=== PATIENT | female | born 1950 | race Caucasian/White ===

== ENCOUNTER 2023-07-31 15:29 | Outpatient (AMB) | payer MEDICARE, MEDICAID, SELFPAY ==
[2023-07-31 15:31] VITALS: BMI 40.6
--- NOTE | 2023-07-31 15:31 | A.OFFVIS_ITS ---
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 Pt states she is having swelling in her legs and ankles. She also states that she is having discoloration in her right leg. She states she elevates her leg but states the swelling doesn't go down. She states she gets some numbness in her feet as well. 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 Complaints include pain over varicosities, swelling of lower extremities, cramping, fatigue, and heaviness of the lower extremities. It has been affecting there daily activities including walking. She does require the use of a walker It is noted more so in right leg. Of note she had a in 1974 through a longitudinal midline incision. She does vape and stop cigarette smoking in 2010 and is a nondiabetic. Patient denies any previous venous surgery or injections. Patient notes 2 prior episodes of DVT left in 1993 and more recently the right leg. Of note she has been worked up and is a heterozygote for factor 5 Leiden deficiency. Patient denies any history of phlebitis. Trial of compression includes - attempted [id number] They now present for vascular evaluation regarding their varicose veins. [facility] Social History (Updated 07/31/23 @ 15:35 by Flakita Hidalgo CMA) Household Members: None Housing: House Do you presently have visiting nurse or other home services: Yes Alcohol intake: never Patient Tobacco Use Status: Never used Tobacco e-Cigarette/Vaping Use: Currently Using Use of substances other than those prescribed or required for medical reasons: No Review of Systems Const Reports as per HPI ENT Reports no additional complaints Card Denies chest pain, Denies chest pain at rest and Denies chest pain with activity Resp Denies chest congestion and Denies cough GI Reports no additional complaints Musc Details: pain over varicosities, aching of lower extremities, swelling, cramping, heaviness and tiredness, itching Denies abnormal gait Skin/Breast Reports pruritus and Denies wounds Neuro Reports no additional complaints and Denies abnormal gait Psych Denies no additional complaints Physical Exam Vital Signs: BMI result Body Mass Index 40.6 Const General: cooperative, healthy appearing and comfortable Orientation/consciousness: oriented to person, oriented to place and oriented to time Neck Carotids: no bruits Chest Chest palpation & inspection: normal inspection of the chest and normal palpation of entire chest wall Resp Effort & Inspection: normal respiratory effort and able to speak in complete sentences Cardio Rate: regular rate Heart sounds: S1 normal heart sound present and S2 normal heart sound present Peripheral pulses: Peripheral pulses 2+ throughout GI Inspection: Yes normal to inspection Skin Other: +2 edema, large rope-like varicosities greater than 4 mm CEAP Classification C4 - skin color changes Ep - Etiology Primary As - superficial veins P - reflux General skin exam: dry skin Neuro General: oriented to person, oriented to place and oriented to time Extrem Right lower extremity: full ROM, normal capillary refill and edema Left lower extremity: full ROM, normal capillary refill and edema Psych Mental Status: mental status grossly normal Assessment & Plan Assessment & Plan (1) Varicose veins of right lower extremity with inflammation: Code(s): I83.11 - Varicose veins of right lower extremity with inflammation Plan: In short, the patient has evidence of venous insufficiency. I have discussed the pathophysiology with the patient. In addition I have provided informational material regarding venous disease to the patient. We have discussed conservative measures including compression, elevation, and exercise. I have also provided a handout regarding appropriate use of compression stockings and where to purchase good compression stockings as well. I have taken the liberty of ordering venous insufficiency testing with the patient. They will follow up with me after testing. The patient had an opportunity to ask questions regarding the treatment plan. All questions were answered. Imaging studies, laboratory studies and physical exam results were discussed and reviewed in detail. No major barriers to understanding were identified. The patient expressed understanding and agreement with the above treatment plan. The patient is aware they should contact our office by phone for worsening of the current condition or the appearance of new symptoms. Thank you for allowing me to participate in the vascular care of this patient. If you have any questions or concerns regarding the treatment for the above condition please do not hesitate to contact me. The office telephone contact is [phone]. This note is constructed using voice recognition software. While every effort has been made to ensure accuracy, laminating machine tender errors may have been included. Thank you for allowing me to participate in the care of your patient. Yours sincerely, Obie Lake MD, FACS, R.P.V.I. (2) Lymphedema: Code(s): I89.0 - Lymphedema, not elsewhere classified Plan: In addition there is concern of lymphedema of this patient. She does have clinical stigmata of lymphedema with dorsal humping of the feet along with ankle swelling. In addition she has significant swelling through bilateral lower extremities along with her lower abdomen. This may be related to her surgery back in 1974. We will assess her venous status and then work her up for lymphedema. Orders: Orders US venous duplex LE BI 1 Week I83.11 - Varicose veins of right lower extremity with inflammation Coding Level of Care Code New Pt Level 4 (76970) Diagnoses Varicose veins of right lower extremity with inflammation I83.11 Lymphedema I89.0
== END 2023-07-31 16:17 | disposition home or self-care (01) ==
PROVIDERS: Visit Provider Surgery Vascular Surgery
DX: I83.11 Varicose veins of right lower extremity with inflammation (principal); I89.0 Lymphedema, not elsewhere classified
CPT/HCPCS: 99203

== ENCOUNTER → 2023-07-31 15:29 | Outpatient (BNVA) | payer MEDICARE, MEDICAID, SELFPAY | PROVIDERS: Visit Provider Surgery Vascular Surgery | DX: I83.11 Varicose veins of right lower extremity with inflammation (principal); I89.0 Lymphedema, not elsewhere classified | CPT/HCPCS: 99202 ==

== ENCOUNTER 2023-08-09 12:54 | Outpatient (REF) | payer MEDICARE, MEDICAID, SELFPAY ==
--- NOTE | ~2023-08-09 | US_ITS ---
EXAMINATION: US LOWER EXTREMITY VENOUS (REFLUX EXAM), BILATERAL CLINICAL INDICATION: Chronic venous insufficiency with varicose veins with inflammation COMPARISON: None. TECHNIQUE: Color flow triplex imaging and compression Doppler was performed to evaluate both the deep and the superficial systems bilaterally. To evaluate the superficial system, the examination was performed in the upright position. Color-flow Doppler ultrasound and compression ultrasound were utilized. In addition, maneuvers were utilized to demonstrate reflux. FINDINGS: 1. DEEP VENOUS ULTRASOUND OF THE RIGHT LOWER EXTREMITY: Common Femoral Vein: Compressible, normal respiratory variation and augmented flow. Femoral Vein: Compressible, normal color flow and augmentation. Popliteal Vein: Compressible, normal augmentation. Deep Reflux: Deep venous reflux seen in the popliteal vein measuring 1184 ms There is no evidence of a Chang's cyst. 2. SUPERFICIAL ULTRASOUND WITH DOPPLER OF RIGHT LOWER EXTREMITY: GREAT SAPHENOUS VEIN: Saphenofemoral Junction: 0.6 cm; Reflux: 0 ms Proximal Thigh: 0.6 cm; Reflux: 0 ms Mid Thigh: 0.6 cm; Reflux: 760 ms Above Knee: 0.5 cm; Reflux: 0 ms At Knee: 0.6 cm; Reflux: 0 ms Below Knee: 0.6 cm; Reflux: 0 ms Mid Calf: 0.6 cm; Reflux: 892 ms Ankle: 0.4 cm; Reflux: 0 ms DUPLICATED MEDIAL GREAT SAPHENOUS VEIN: Diameter: 0.4 cm Reflux: None DUPLICATED LATERAL GREAT SAPHENOUS VEIN: Diameter: None imaged Reflux: NA SMALL SAPHENOUS VEIN: Saphenopopliteal Junction: 0.2 cm; Reflux: 0 ms Mid: 0.4 cm; Reflux: 0 ms Distal: 0.5 cm; Reflux: 0 ms VEIN OF GIACOMINI: Size: NA Reflux: NA PERFORATORS: Location: None imaged Size: NA Reflux: NA VARICOSITIES: Location: Posterior calf off the small saphenous vein, medial thigh off the medial accessory great saphenous vein, proximal and mid thigh, knee, proximal and mid calf off the great saphenous Size: 0.3 to 0.5 cm Reflux: Ranging from 616 ms to 1428 ms 3. DEEP VENOUS ULTRASOUND OF THE LEFT LOWER EXTREMITY: Common Femoral Vein: Compressible, normal respiratory variation and augmented flow. Femoral Vein: Compressible, normal color flow and augmentation. Popliteal Vein: Compressible, normal augmentation. Deep Reflux: There is no evidence of reflux in the deep system in either the common femoral vein, superficial femoral or the popliteal vein. There is no evidence of a Chang's cyst. 4. SUPERFICIAL ULTRASOUND WITH DOPPLER OF LEFT LOWER EXTREMITY: GREAT SAPHENOUS VEIN: Saphenofemoral Junction: 0.7 cm; Reflux: 0 ms Proximal Thigh: 0.6 cm; Reflux: 0 ms Mid Thigh: 0.7 cm; Reflux: 0 ms Above Knee: 0.2 cm; Reflux: 0 ms At Knee: Not visualized Below Knee: Not visualized Mid Calf: Not visualized Ankle: 0.4 cm; Reflux: 0 ms DUPLICATED MEDIAL GREAT SAPHENOUS VEIN: Diameter: None imaged Reflux: NA DUPLICATED LATERAL GREAT SAPHENOUS VEIN: Diameter: 0.4 cm Reflux: None SMALL SAPHENOUS VEIN: Saphenopopliteal Junction: 0.5 cm; Reflux: 1112 ms Mid: 0.5 cm; Reflux: 804 ms Distal: 0.6 cm; Reflux: 1692 ms VEIN OF GIACOMINI: Size: NA Reflux: NA PERFORATORS: Location: None imaged Size: NA Reflux: NA VARICOSITIES: Location: Posterior mid calf off the small saphenous vein, medial proximal and mid, thigh off the great saphenous vein, mid calf off the great saphenous Size: 0.4 to 0.6 cm Reflux: 1360 ms to 1560 ms US/US venous duplex LE BI IMPRESSION: Right: Segmental areas of reflux within the great saphenous vein in the mid to thigh and mid calf. There is deep venous reflux in the right popliteal vein. Multiple branching varicosities seen throughout the right lower extremity as described below. Left: Severe reflux throughout the left small saphenous vein. Multiple branching varicosities throughout the left lower extremity as described above
== END 2023-08-09 12:55 | disposition home or self-care (01) ==
LOC: HO.US 12:54
PROVIDERS: PCP Internal Medicine; Visit Provider Surgery Vascular Surgery
DX: I83.11 Varicose veins of right lower extremity with inflammation (principal)
CPT/HCPCS: 93970

== ENCOUNTER 2023-12-27 13:31 | Outpatient (AMB) | payer MEDICARE, MEDICAID, SELFPAY ==
[2023-12-27 13:37] VITALS: BMI 40.6
--- NOTE | 2023-12-27 13:37 | MHC.OFFVIS ---
Vital Signs 12/27/23 13:37 Height 5 ft 2 in Weight 222 lb BMI 40.6 Intake Visit Reasons: Follow up [facility] 08/09/2023 Intake Note: follow up 08/09/23, pt has bilateral LE swelling, Right LE worse than Left LE. Right LE has discoloration and Left LE has consistent pain. When elevates the discoloration disappears but swelling is always swelling Accompanied by: Self / Same As Patient Allergies acetaminophen [From Percocet] Allergy (Intermediate, Verified 12/27/23 13:41) Hives bupropion [From Wellbutrin] Allergy (Intermediate, Verified 12/27/23 13:41) Anxiety morphine Allergy (Intermediate, Verified 12/27/23 13:41) Hives oxycodone [From Percocet] Allergy (Intermediate, Verified 12/27/23 13:41) Hives tramadol [From Ultram] Allergy (Intermediate, Verified 12/27/23 13:41) Anxiety HPI HPI Follow up [facility] 08/09/2023: Details: Very pleasant 73-year-old female presents for follow-up regarding swollen lower extremities. She reports that is the left more so than right she is having left posterior calf pain. Has been a source of pain and discomfort for her. She is actually having difficulty ambulating a requires the use of walker. She now presents for routine follow-up with venous insufficiency testing. Of note she had tried use compression stockings which were extremely difficult for her. [facility] Social History (Updated 07/31/23 @ 15:35 by Flakita Hidalgo [facility] Household Members: None Housing: House Do you presently have visiting nurse or other home services: Yes Alcohol intake: never Patient Tobacco Use Status: Never used Tobacco e-Cigarette/Vaping Use: Currently Using Review of Systems Const Reports as per HPI ENT Reports no additional complaints Card Denies chest pain, Denies chest pain at rest and Denies chest pain with activity Resp Denies chest congestion and Denies cough GI Reports no additional complaints Musc Details: pain over varicosities, aching of lower extremities, swelling, cramping, heaviness and tiredness, itching Denies abnormal gait Skin/Breast Reports pruritus and Denies wounds Neuro Reports no additional complaints and Denies abnormal gait Psych Denies no additional complaints Physical Exam Vital Signs: BMI result Body Mass Index 40.6 Const General: cooperative, healthy appearing and comfortable Orientation/consciousness: oriented to person, oriented to place and oriented to time Neck Carotids: no bruits Chest Chest palpation & inspection: normal inspection of the chest and normal palpation of entire chest wall Resp Effort & Inspection: normal respiratory effort and able to speak in complete sentences Cardio Rate: regular rate Heart sounds: S1 normal heart sound present and S2 normal heart sound present Peripheral pulses: Peripheral pulses 2+ throughout GI Inspection: Yes normal to inspection Skin Other: +2 edema, large rope-like varicosities greater than 4 mm CEAP Classification C4 - skin color changes Ep - Etiology Primary As - superficial veins P - reflux General skin exam: dry skin Neuro General: oriented to person, oriented to place and oriented to time Extrem Right lower extremity: full ROM, normal capillary refill and edema Left lower extremity: full ROM, normal capillary refill and edema Psych Mental Status: mental status grossly normal Results Reviewed Results Reviewed: Brief summary of venous insufficiency testing is as follows: right great saphenous vein: negative right small saphenous vein: negative right accessory vein: none present left great saphenous vein: negative left small saphenous vein: Positive left accessory vein: none present Please note there is no evidence of any venous aneurysms or significant tortuosity Assessment & Plan Assessment & Plan (1) Varicose veins of left lower extremity with inflammation: Code(s): I83.12 - Varicose veins of left lower extremity with inflammation Category: Medical Plan: This patient has varicose veins with inflammation. They continue to be a source of discomfort for the patient. The patient has tried conservative treatment with compression, leg elevation and exercise program for over 3 months time. They have been compliant with all treatment. This has provided minimal relief for the patient. I do not anticipate this course of treatment will alter the underlying etiology. The patient has been scheduled for lower extremity venous treatment inclusive of --- left small saphenous vein radiofrequency ablation. Risks, benefits, and complications of this procedure has been discussed in detail with the patient including but not limited to bleeding, infection, and the development of a DVT. The patient has demonstrated a clear understanding and has consented. We will schedule the patient as soon as possible. Thank you for allowing us to participate in this patient's care. If there are any questions or concerns please do not hesitate to contact us. Coding Level of Care Code Est Pt Level 4 (07619) Diagnoses Varicose veins of left lower extremity with inflammation I83.12
== END 2023-12-27 14:03 | disposition home or self-care (01) ==
PROVIDERS: PCP Internal Medicine; Visit Provider Surgery Vascular Surgery
DX: I83.12 Varicose veins of left lower extremity with inflammation (principal)
CPT/HCPCS: 99214

== ENCOUNTER → 2023-12-27 13:31 | Outpatient (BNVA) | payer MEDICARE, MEDICAID, SELFPAY | PROVIDERS: PCP Internal Medicine; Visit Provider Surgery Vascular Surgery | DX: I83.12 Varicose veins of left lower extremity with inflammation (principal); I83.812 Varicose veins of left lower extremity with pain; M79.89 Other specified soft tissue disorders | CPT/HCPCS: 99212 ==

== ENCOUNTER 2024-02-01 07:21 | Outpatient (AMB) | payer MEDICARE, MEDICAID, SELFPAY ==
--- NOTE | 2024-02-01 07:42 | MHC.OFFVIS ---
Intake Visit Reasons: Left SSV RFA Accompanied by: Self / Same As Patient Allergies acetaminophen [From Percocet] Allergy (Intermediate, Verified 02/01/24 07:42) Hives bupropion [From Wellbutrin] Allergy (Intermediate, Verified 02/01/24 07:42) Anxiety morphine Allergy (Intermediate, Verified 02/01/24 07:42) Hives oxycodone [From Percocet] Allergy (Intermediate, Verified 02/01/24 07:42) Hives tramadol [From Ultram] Allergy (Intermediate, Verified 02/01/24 07:42) Anxiety PFSH Social History Household Members: None Housing: House Do you presently have visiting nurse or other home services: Yes Alcohol intake: never Patient Tobacco Use Status: Never used Tobacco e-Cigarette/Vaping Use: Currently Using Office Procedures Vascular Office Procedure Details Details: Diagnosis: Varicose veins with inflammation of left leg Procedure: Endovenous radiofrequency ablation of the left small saphenous vein(s) of the lower extremity with Venclose Anesthesia: Local infiltration 5 cc, Tumescent 200 cc. Estimated Blood Loss: Minimal The patient was transferred to the procedure suite and the insufficient small saphenous vein was mapped by ultrasound and diagrammed on the overlying skin. The depth and diameter of the vein(s) to be treated was documented. The varicose tributary veins and suitable access sites were identified and mapped as well. The patient was then positioned prone on the procedure table. The affected limb was prepped and draped in the usual sterile fashion. The RF catheter was placed on the sterile field, flushed and wiped down, prepared, and connected by a sterile cable. The patient was placed in a prone position and local anesthesia was instilled in the skin overlying the access site. A skin incision was made overlying the identified and mapped small saphenous vein entry site. The vein was accessed using ultrasound guidance and the Seldinger technique, a guide wire was introduced through the needle, which was then exchanged over the guide wire for a 6F sheath, which was secured in place. The guide wire was removed and the sheath was flushed. The RF catheter was placed into the vein through the sheath and preferentially, imaging was used to place the catheter tip just inferior to the saphenopopliteal junction. Additionally, it was confirmed by ultrasound guidance that the catheter tip was also placed a minimum of 1.5cm distal to the saphenopopliteal junction. After the RF catheter position was verified by ultrasound, tumescent anesthesia was infiltrated, under ultrasound guidance, precisely into the perivenous compartment along the entire length of vein from the entry site to the saphenofemoral junction until a halo of fluid was noted around the vein. The patient was appropriately position. After RF catheter position was again confirmed with ultrasound imaging, and under direct external compression along the length of the heating element, RF energy was applied. The vein was segmentally ablated by heating a 10 cm segment and then indexing the catheter forward by 9.5 cm until the treatment length is completed. Device temperature was maintained at 120 plus or minus 5 degrees C with an initial power level of 4W/cm dropping to below 2W/cm for each treatment. Total vein length treated 12.5 cm Total cycles of RF 3 cycles. Repeat ultrasound of the saphenous vein was performed, confirming successful treatment. The catheter and sheath were withdrawn and hemostasis established with direct pressure. After assuring hemostasis, the skin incision over the saphenous vein was closed with a bandage and a compression wrap was applied from the level of the foot to the most proximal level of the thigh. Discharge instructions were given to the patient inclusive of follow-up ultrasound and recommended follow-up with us 10455 - Endovenous RF, 1st Vein All charges added?: Procedure code (CPT) selection complete Assessment & Plan Assessment & Plan (1) Varicose veins of left lower extremity with inflammation: Comment: 02/01/2024 - left small saphenous vein radiofrequency ablation Code(s): I83.12 - Varicose veins of left lower extremity with inflammation Category: Medical Plan: See op note Coding Level of Care Code Procedure Only Diagnoses Varicose veins of left lower extremity with inflammation I83.12 CPT Codes Details - Vascular 1: 08113 - Endovenous RF, 1st Vein ([id number])
== END 2024-02-01 08:30 | disposition home or self-care (01) ==
PROVIDERS: PCP Internal Medicine; Visit Provider Surgery Vascular Surgery
DX: I83.12 Varicose veins of left lower extremity with inflammation (principal)
CPT/HCPCS: 36475

== ENCOUNTER → 2024-02-01 07:21 | Outpatient (BNVA) | payer MEDICARE, MEDICAID, SELFPAY | PROVIDERS: PCP Internal Medicine; Visit Provider Surgery Vascular Surgery | DX: I83.12 Varicose veins of left lower extremity with inflammation (principal) | CPT/HCPCS: 36475; J2003; J2004 ==

== ENCOUNTER 2024-02-05 10:20 | Outpatient (REF) | payer MEDICARE, MEDICAID, SELFPAY ==
--- NOTE | ~2024-02-05 | US_ITS ---
EXAMINATION: TRIPLEX SCANNING OF LEFT LOWER EXTREMITY; SUPERFICIAL ULTRASOUND WITH DOPPLER OF LEFT LOWER EXTREMITY CLINICAL INFORMATION: Status post radiofrequency ablation of the left small saphenous vein Originally performed on 02/01/2024. COMPARISON: 08/09/2023. TECHNIQUE: Color flow triplex imaging and compression Doppler were performed as well as superficial ultrasound with Doppler. FINDINGS: LEFT LOWER EXTREMITY DEEP VENOUS SYSTEM: Respiratory variation, normal compression and augmented flow are noted throughout the lower extremity. The visualized common femoral vein, femoral vein, profunda femoral vein, popliteal vein and the calf veins show no evidence of deep venous thrombosis. There is no evidence of Chang's cyst. SUPERFICIAL VENOUS SYSTEM: The small saphenous vein is occluded from the access site to the saphenopopliteal junction. There is no extension of thrombus into the deep system. US/US venous duplex LE IMPRESSION: 1. No evidence of DVT. 2. Excellent appearance status post ablation of the left small saphenous vein. Electronically signed by: Clyde Baca MD 02/05/2024 11:32 AM EDT
== END 2024-02-05 10:21 | disposition home or self-care (01) ==
LOC: HO.US 10:20
PROVIDERS: PCP Internal Medicine; Visit Provider Surgery Vascular Surgery
DX: M79.605 Pain in left leg (principal)
CPT/HCPCS: 93971

== ENCOUNTER 2024-02-26 14:36 | Outpatient (AMB) | payer MEDICARE, MEDICAID, SELFPAY ==
--- NOTE | 2024-02-26 14:52 | MHC.OFFVIS ---
Vital Signs 02/26/24 14:56 Height 5 ft 2 in Weight 224 lb BMI 41.0 Intake Visit Reasons: Follow up Left SSV RFA Intake Note: Patient presents for 2 week follow up left ssv rfa. Patient states she has been doing well post procedure. Accompanied by: Other Relationship Allergies acetaminophen [From Percocet] Allergy (Intermediate, Verified 02/26/24 14:55) Hives bupropion [From Wellbutrin] Allergy (Intermediate, Verified 02/26/24 14:55) Anxiety morphine Allergy (Intermediate, Verified 02/26/24 14:55) Hives oxycodone [From Percocet] Allergy (Intermediate, Verified 02/26/24 14:55) Hives tramadol [From Ultram] Allergy (Intermediate, Verified 02/26/24 14:55) Anxiety HPI HPI Follow up Left SSV RFA: Details: Very complex 73-year-old patient follows up for left small saphenous vein ablation. She reports that her leg did do well after the procedure. In general she notes that her legs have been swollen because she has been off her diuretics. She has had GI issues and was subsequently placed on Linzess. It was recommended that she come offer diuretics for this reason. Because of this she has had weight gain and swelling of the lower extremities. In general she does note that her ankle feels better after the procedure and notes that there was an improvement after the ablation. Of note postprocedure ultrasound was negative for DVT. [facility] Social History Household Members: None Housing: House Do you presently have visiting nurse or other home services: Yes Alcohol intake: never Patient Tobacco Use Status: Never used Tobacco e-Cigarette/Vaping Use: Currently Using Review of Systems Const Reports as per HPI ENT Reports no additional complaints Card Denies chest pain, Denies chest pain at rest and Denies chest pain with activity Resp Denies chest congestion and Denies cough GI Reports no additional complaints Musc Details: pain over varicosities, aching of lower extremities, swelling, cramping, heaviness and tiredness, itching Denies abnormal gait Skin/Breast Reports pruritus and Denies wounds Neuro Reports no additional complaints and Denies abnormal gait Psych Denies no additional complaints Physical Exam Vital Signs: BMI result Body Mass Index 41.0 Const General: cooperative, healthy appearing and comfortable Orientation/consciousness: oriented to person, oriented to place and oriented to time Neck Carotids: no bruits Chest Chest palpation & inspection: normal inspection of the chest and normal palpation of entire chest wall Resp Effort & Inspection: normal respiratory effort and able to speak in complete sentences Cardio Rate: regular rate Heart sounds: S1 normal heart sound present and S2 normal heart sound present Peripheral pulses: Peripheral pulses 2+ throughout GI Inspection: Yes normal to inspection Skin Other: +2 edema General skin exam: dry skin Neuro General: oriented to person, oriented to place and oriented to time Extrem Right lower extremity: full ROM, normal capillary refill and edema Left lower extremity: full ROM, normal capillary refill and edema Psych Mental Status: mental status grossly normal Assessment & Plan Assessment & Plan (1) Varicose veins of left lower extremity with inflammation: Comment: 02/01/2024 - left small saphenous vein radiofrequency ablation Code(s): I83.12 - Varicose veins of left lower extremity with inflammation Category: Medical Plan: In short, patient has done well with left small saphenous vein ablation. I do think that her lower extremity swelling is multifactorial in nature inclusive being off her diuretic. At the current time no additional venous intervention is indicated. We did discuss routine conservative measures including compression, elevation, and exercise. She will follow up with us on an as-needed basis. Thank you for allowing us to assist in her care. If there are any questions or concerns please do not hesitate to contact us. Coding Level of Care Code Est Pt Level 3 (35105) Diagnoses Varicose veins of left lower extremity with inflammation I83.12
[2024-02-26 14:56] VITALS: BMI 41.0
== END 2024-02-26 15:17 | disposition home or self-care (01) ==
LOC: HO.HVS 14:36
PROVIDERS: PCP Internal Medicine; Visit Provider Surgery Vascular Surgery
DX: I83.12 Varicose veins of left lower extremity with inflammation (principal)
CPT/HCPCS: 99213

== ENCOUNTER → 2024-02-26 14:36 | Outpatient (BNVA) | payer MEDICARE, MEDICAID, SELFPAY | PROVIDERS: PCP Internal Medicine; Visit Provider Surgery Vascular Surgery | DX: I83.12 Varicose veins of left lower extremity with inflammation (principal) | CPT/HCPCS: 99212 ==

== ENCOUNTER 2024-05-06 12:19 | Outpatient (AMB) | payer MEDICARE, MEDICAID, SELFPAY ==
--- NOTE | 2024-05-06 12:36 | A.OFFVIS_ITS ---
Vital Signs 3 05/06/24 12:39 Height 5 ft 2 in Weight 224 lb 6.889 oz BMI 41.0 Intake Visit Reasons: Thyroid Nodule Intake Note: New patient present today for Thyroid Nodule office visit. Instrumentation And Control Technician Required: No Accompanied by: Self / Same As Patient Allergies acetaminophen [From Percocet] Allergy (Intermediate, Verified 05/06/24 12:45) Hives bupropion [From Wellbutrin] Allergy (Intermediate, Verified 05/06/24 12:45) Anxiety morphine Allergy (Intermediate, Verified 05/06/24 12:45) Hives oxycodone [From Percocet] Allergy (Intermediate, Verified 05/06/24 12:45) Hives tramadol [From Ultram] Allergy (Intermediate, Verified 05/06/24 12:45) Anxiety naloxegol [From Movantik] Allergy (Unknown, Verified 05/06/24 12:45) Unknown Medication List - Last Reconciled 05/06/24 by Dia Smith MD adalimumab (Humira(CF) Pen) 40 mg subcut Q2W aspirin (Adult Aspirin Regimen) 81 mg PO DAILY bisacodyl (Dulcolax (bisacodyl)) 5 mg PO BEDTIME diazepam 5 mg PO TID PRN folic acid 1 mg PO DAILY furosemide 40 mg PO DAILY hydroxychloroquine 200 mg PO BID methotrexate sodium 20 mg PO QWEEK naldemedine (Symproic) 0.2 mg PO DAILY oxycodone ER (OxyContin) 30 mg PO TID polyethylene glycol 3350 (Miralax) 17 grams PO DAILY HPI Comments Details: 73-year-old female here today for initial evaluation of thyroid nodule. Patient was previously following at [facility], here today for a 2nd opinion. She does note a history of thyroid nodules about 10-15 years ago and had a biopsy in the past at [facility] by Dr. Sands , reportedly this was benign but we do not have any records of this. She had a CT head of the brain in April 2023 which revealed a 1.8 cm right lobe thyroid nodule. Subsequently patient underwent ultrasound of the thyroid in August 2023 which revealed a dominant 2.9 cm solid isoechoic TR 3 right mid lobe nodule. Another inferior right thyroid lobe 0.9 cm solid hyperechoic TR 3 nodule possibly with a extrathyroidal location. The left thyroid gland appeared heterogenous with a 0.8 cm solid hyperechoic not taller than wide, no echogenic foci TR 3 nodule located inferior to the lower pole of the left gland possibly suggestive of a lymph node. Status post FNA of the right dominant nodule 11/22/2023, with benign cytology [place] category 2. Labs from September 2023 showed normal TSH of 1.7, TPO antibodies normal at 13. Reports constipation. Reports low energy. Patient currently denies heat or cold intolerance, diarrhea, hair loss, palpitation, anxiety, weight changes, mood changes,, changes in appearance of eyes or vision changes, tremors, increased diaphoresis or dry skin. ? Patient reports intermittent difficulty swallowing pills. Feels left neck is more prominent. no pain on swallowing. Feels reports voice hoarseness intermittently. Patient denies any history of childhood neck radiation. Denies having ever used lithium, amiodarone . Is on some vitamin B supplements which might have biotin. Patient denies any family history of thyroid cancer . Maternal uncle: thyroid disease Physical exam General: sitting comfortably in no acute distress HEENT: normocephalic/atraumatic Neck: supple, palpable 2 cm right-sided nodule, palpable 1 cm left-sided thyroid nodule, palpable left-sided 0.5 cm lymph node in the upper posterior jugular chain Cardiac: normal heart sounds Pulm: normal breath sounds B/L, no added breath sounds Abd: not distended, no tenderness Extremities: no edema, no signs of myxedema [facility] Medical History (Updated 05/06/24 @ 13:34 by Dia Smith MD) Factor 5 Leiden mutation, heterozygous Rheumatoid arthritis Multinodular goiter Surgical History (Updated 05/06/24 @ 12:51 by ADITHYA Benton) Hx of vascular surgery Hx of breast augmentation History of colonoscopy Hx of cholecystectomy History of YAG laser capsulotomy of lens of left eye Hx of cataract surgery History of left knee replacement Family History Mother History of left hip replacement Father No known health problems Social History Household Members: None Housing: House Do you presently have visiting nurse or other home services: Yes Alcohol intake: never Patient Tobacco Use Status: Never used Tobacco e-Cigarette/Vaping Use: Currently Using Physical Exam Vital Signs: BMI result Body Mass Index 41.0 Assessment & Plan Assessment & Plan (1) Multinodular goiter: Code(s): E04.2 - Nontoxic multinodular goiter Category: Medical Plan: 73-year-old female with no personal history of head or neck radiation, with no family history of thyroid cancer here today to establish care for multinodular goiter. She does note a history of thyroid nodules about 10-15 years ago and had a biopsy in the past at [facility] by Dr. Sands , reportedly this was benign but we do not have any records of this. She had a CT head of the brain in April 2023 which revealed a 1.8 cm right lobe thyroid nodule. Subsequently patient underwent ultrasound of the thyroid in August 2023 which revealed a dominant 2.9 cm solid isoechoic TR 3 right mid lobe nodule. Another inferior right thyroid lobe 0.9 cm solid hyperechoic TR 3 nodule possibly with a extrathyroidal location. The left thyroid gland appeared heterogenous with a 0.8 cm solid hyperechoic not taller than wide, no echogenic foci TR 3 nodule located inferior to the lower pole of the left gland possibly suggestive of a lymph node. Status post FNA of the right dominant nodule 11/22/2023, with benign cytology [place] category 2. Labs from September 2023 showed normal TSH of 1.7, TPO antibodies normal at 13. I explained that it is common to have thyroid nodules. About 95% of the time these nodules are benign. However if the nodule is > 1 cm in size or suspicious on ultrasound then a fine need aspiration biopsy is recommended. At this point given she has had a biopsy of her dominant right lobe nodule which was benign, [place] category 2 which yields a less than 3% chance of malignancy., we will plan to repeat a thyroid ultrasound in October 2024 which should be around 1 year from her biopsy and plan to follow her up in November 2024. Plan: -ordered TSH, free T4 to be done in October 2024 -ordered ultrasound thyroid to be done in October 2024 -follow up in November 2024 to discuss results Plan See above Orders: Orders 2 Thyroid Stimulating Hormone 6 Months E04.2 - Nontoxic multinodular goiter Free T4 (Free Thyroxine) 6 Months E04.2 - Nontoxic multinodular goiter Free T4 (Free Thyroxine) 5 Months E04.2 - Nontoxic multinodular goiter US thyroid 10/27/24 E04.2 - Nontoxic multinodular goiter Thyroid Stimulating Hormone 5 Months E04.2 - Nontoxic multinodular goiter Patient Instructions: Do thyroid ultrasound in October 2024, somebody we will call you to schedule this Do blood work a week prior to your next appointment, orders have been placed for this Follow up in November 2024 to discuss results Coding Level of Care Code New Pt Level 4 (23595) Diagnoses Multinodular goiter E04.2
[2024-05-06 12:39] VITALS: BMI 41.0
--- OUTSIDE RECORDS SUMMARY | 2024-05-06 14:26 | XMS_ITS | Continuity of Care Document ---
Author Organization [facility] Address [address] [place] [id number] Care Team Providers Care Supervisor [employer]atto[employer] Name Role Phone Tamar STUART, Pacheco Fox Primary Care Physician Encounter [facility] Date(s): 03/24/24 - 04/23/24 [facility] [address] [place] [id number] Encounter Type: Triage Allergies, Adverse Reactions, Alerts Substance Criticality Severity Reaction Reaction Severity Status MS Contin Itchy Active Adhesive Bandage Act jolie Latex Itchy skin eruption Active Movantik Active Alcohol painful weeping rash Active Other Environmental Allergy 1 perfume Active 1painful weeping rash Immunizations Given and Recorded Vaccine Date Status Refusal Reason influenza virus vaccine, inactivated 02/18/19 Ihsan rded influenza virus vaccine, inactivated 01/09/15 Ihsan rded influenza virus vaccine, inactivated 05/13/12 Ihsan rded Zoster Vaccine Live 01/09/15 Recorded Medications amoxicillin 500 mg oral capsule 0 Refills, Maintenance, 01/07/24 3:37:00 PM EDT, Partial fill upon patient request if the prescription is for a schedule II opioid drug. Start Date: 01/07/24 Status: Ordered Repeat number: 1 aspirin 81 mg oral tablet 1 tablet = 81 mg, By Mouth, Daily, 0 Refills, Maintenance, 08/01/16 10:50:04 AM EDT Start Date: 08/01/16 Status: Ordered Repeat number: 1 Compression Stockings 1 pair, # 1 pair, Refills 4, Tot. Refills 4, Bilateral, Class II., Edema, 11/26/08 9:10:08 AM EDT Start Date: 11/26/08 Status: Ordered Quantity: 1.0 Unit: pair Repeat number: 5 Compression Stockings See Instructions, # 3 pair, Refills 1, Tot. Refills 1, Maintenance, surgical, knee length 20-30 mm Hg, 11/15/16 11:04:21 AM EDT, Compound Start Date: 11/15/16 Status: Ordered Quantity: 3.0 Unit: pair Repeat number: 2 Compression Stockings See Instructions, # 2 pair, Refills 4, Tot. Refills 4, Maintenance, Dx: Bilateral DVT, post-phlebitic syndrome surgical, knee length 20-30 mm Hg Dispense Juzo wide top band, open toe Medically necessary, no substitutions, 03/28/18 2:57:55 PM EST, Compound Start Date: 03/28/18 Status: Ordered Quantity: 2.0 Unit: pair Repeat number: 5 diazepam 5 mg oral tablet 5 mg, 1, tablet, By Mouth, 3 times a day, PRN, RA- [address] # 90 tablet, Refills 0, Tot. Refills0, Maintenance, as needed for anxiety, 01/02/18 2:09:25 PM EDT, Print Requisition, Start Date: 01/02/18 Status: Ordered Quantity: 90.0 Unit: tablet Repeat number: 1 Dulcolax 5 mg oral enteric coated tablet 1 tablet = 5 mg, By Mouth, Daily, 0 Refills, Maintenance, 01/07/24 3:38:00 PM EDT, Partial fill uponpatient request if the prescription is for a schedule II opioid drug. Start Date: 01/07/24 Status: Ordered Repeat number: 1 escitalopram 5 mg oral tablet TAKE 1 TABLET BY MOUTH EVERY DAY Start Date: 04/28/23 Status: Ordered Repeat number: 1 folic acid 1 mg oral tablet 1 mg, 1, tablet, By Mouth, Daily, # 30 tablet, Refills 0, Maintenance, 04/28/23 12:16:00 PM EST, Partial fill upon patient request if the prescription is for a schedule II opioid drug. Start Date: 04/28/23 Status: Ordered Quantity: 30.0 Unit: tablet Repeat number: 1 furosemide 20 mg oral tablet 40 mg, 2, tablet, By Mouth, Daily, # 30 tablet, Refills 0, Maintenance, 04/28/23 12:16:00 PM EST, Partial fill upon patient request if the prescription is for a schedule II opioid drug. Start Date: 04/28/23 Status: Ordered Quantity: 30.0 Unit: tablet Repeat number: 1 Humira Pen 40 mg/0.4 mL subcutaneous kit 0 Refills, Maintenance, 04/28/23 12:16:00 PM EST, Partial fill upon patient request if the prescription is for a schedule II opioid drug. Start Date: 04/28/23 Status: Ordered Repeat number: 1 hydroxychloroquine 200 mg oral tablet TAKE 1 TABLET BY MOUTH TWICE DAILY Start Date: 04/28/23 Status: Ordered Repeat number: 1 LE Compression Bandages LE Compression Bandages, See Instructions, # 1 units, Refills 0, Tot. Refills 0, Dispense: 4 - toe bandages, 1- 10 cm Artiflex, 1-15 cm Artiflex, 2 - 6 cm short stretch, 2-8 cm short stretch, 2- 10 cm short stretch, and 2-12 cm short stretch., 11/26/08 9:10:02 AM EDT Start Date: 11/26/08 Status: Ordered Quantity: 1.0 Unit: Units Repeat number: 1 methotrexate 2.5 mg oral tablet 1 tablet = 2.5 mg, By Mouth, Every week, # 4 tablet, 0 Refills, Maintenance, 03/02/17 4:27:22 PM EST, Tablet Start Date: 03/02/17 Status: Ordered Quantity: 4.0 Unit: tablet Repeat number: 1 MiraLax = 17 Gm, By Mouth, Daily, 0 Refills, Maintenance, 01/07/24 3:41:00 PM EDT, Partial fill upon patientrequest if the prescription is for a schedule II opioid drug. Start Date: 01/07/24 Status: Ordered Repeat number: 1 Miscellaneous Rx 0 Refills, Maintenance, Ensure 150 Calorie 30mg High Protein Drink, 01/07/24 3:39:00 PM EDT Start Date: 01/07/24 Status: Ordered Repeat number: 1 Miscellaneous Rx 0 Refills, Maintenance, Vitamin D3 800 iu, 01/07/24 3:39:00 PM EDT Start Date: 01/07/24 Status: Ordered Repeat number: 1 Miscellaneous Rx 0 Refills, Maintenance, Calcium 1300mg, 01/07/24 3:40:00 PM EDT Start Date: 01/07/24 Status: Ordered Repeat number: 1 nystatin topical 244307 u/gm cream 1 application, Topically, 2 times a day, Apply to abdominal skin rash, # 30 Gm, 0 Refills, Maintenance, 05/02/23 2:28:00 PM EST, Cream, Partial fill upon patient request if the prescription is for a schedule II opioid drug. Start Date: 05/02/23 Status: Ordered Quantity: 30.0 Unit: g Repeat number: 1 OxyCONTIN 40 mg oral tablet, extended release 40 mg, 1, tablet, By Mouth, Every 8 hours, TAKE 1 TABLET BY MOUTH EVERY 8 HOURS, # 21 tablet, Refills 0, Tot. Refills 0, Maintenance, 05/02/23 2:30:00 PM EST, Print Requisition, Partial fill upon patient request if the prescription is for a schedule II opioid drug. Start Date: 05/02/23 Stop Date: 05/09/23 Status: Ordered Quantity: 21.0 Unit: tablet Repeat number: 1 PEG-[id number] with Electrolytes (Eqv-GoLYTELY) oral powder for reconstitution See Instructions, per GI office, # 4,000 mL, 0 Refills, Maintenance, 02/07/24 4:33:00 PM EDT, [facility] #[id number], Partial fill upon patient request if the prescription is for a schedule II opioid drug., per GI office, 158, cm, 01/07/24 15:32:00 EDT, Height, 100.1, kg, 04/30/23 13:31:00 EST, Dry Weight Start Date: 02/07/24 Status: Ordered Quantity: 4000.0 Unit: mL Repeat number: 1 [id number] oral powder for reconstitution = 17 Gm, By Mouth, Daily, for 30 days, dissolve in 4 to 8 oz of beverage, take 1 to 2 capfuls dailyas needed for constipation, # 510 Gm, 1 Refills, Acute 06/13/24 12:49:00 PM EST, 04/14/24 12:49:00 PM EST, REC Powder, [facility] #[id number], Partial fill upon patient request if the prescription is for a schedule II opioid drug., 17 Gm By Mouth Daily,x30 days,Instr:dissolve in 4 to 8 oz of beverage, take 1 to 2 capfuls daily as needed for constipation, 158, cm, 01/07/24 15:32:00 EDT, Height, 100.1, kg, 04/30/23 13:31:00 EST, Dry Weight Start Date: 04/14/24 Stop Date: 06/13/24 Status: Ordered Quantity: 510.0 Unit: g Repeat number: 2 Refresh Optive Advanced ophthalmic solution Eyes, Both, 4 times a day, 0 Refills, Maintenance, 01/07/24 3:40:00 PM EDT, Partial fill upon patient request if the prescription is for a schedule II opioid drug. Start Date: 01/07/24 Status: Ordered Repeat number: 1 Sutab oral tablet See Instructions, see conlonscopy instructions, # 1 kit, 0 Refills, Maintenance, 01/07/24 4:03:00 PMEDT, [facility] #[id number], Partial fill upon patient request if the prescription is for a schedule II opioid drug., see conlonscopy instructions, 158, cm, 01/07/24 15:32:00 EDT, Height, 100.1,kg, 04/30/23 13:31:00 EST, Dry Weight Start Date: 01/07/24 Status: Ordered Quantity: 1.0 Unit: kit Repeat number: 1 Symproic 0.2 mg oral tablet 1 tablet = 0.2 mg, By Mouth, Daily, # 30 tablet, 5 Refills, Maintenance, 03/19/24 4:02:00 PM EST, Tablet, [facility] #[id number], 158, cm, 01/07/24 15:32:00 EDT, Height, 100.1, kg, 04/30/23 13:31:00 EST, Dry Weight Start Date: 03/19/24 Status: Ordered Quantity: 30.0 Unit: tablet Repeat number: 6 Trulance 3 mg oral tablet 1 tablet = 3 mg, By Mouth, Daily, # 30 tablet, 4 Refills, Maintenance, 02/22/24 4:01:00 PM EDT, [facility] #[id number], 158, cm, 01/07/24 15:32:00 EDT, Height, 100.1, kg, 04/30/23 13:31:00 EST, Dry Weight Start Date: 02/22/24 Stop Date: 07/21/24 Status: Ordered Quantity: 30.0 Unit: tablet Repeat number: 5 Tylenol 8 HR Arthritis Pain 650 mg oral tablet, extended release 2 tablet = 1,300 mg, By Mouth, Every 8 hours, 0 Refills, Maintenance, 01/07/24 3:38:00 PM EDT, Partial fill upon patient request if the prescription is for a schedule II opioid drug. Start Date: 01/07/24 Status: Ordered Repeat number: 1 wrist splints bilateral wrist splints bilateral, See Instructions, # 2 each, Refills 0, Tot. Refills 0, Maintenance, (1) left and (1) right wrist splints for CTS, 08/31/14 4:04:25 PM EDT, Compound Start Date: 08/31/14 Status: Ordered Quantity: 2.0 Unit: each Repeat number: 1 Problem List Condition Confirmation Course Effective Dates Status H ealth Status Informant Anxiety Confirmed Active Chronic pain syndrome Confirmed Active Factor V Leiden Confirmed Active Colonic dysmotility 1 Confirmed Active History of deep venous thrombosis (DVT) of distal vein of left lower extremity Confirmed Active History of deep venous thrombosis (DVT) of distal vein of right lower extremity Confirmed Active Impetigo Confirmed Active Postphlebitic syndrome Confirmed Active Rheumatoid arthritis Confirmed Active Severe obesity Confirmed Active 1per sitzmark study in 2016 showing capsules reached the splenic flexure after 5 days after ingestion with most in the ascending colon Social History Social History Type Response Smoking Status Former smoker; Other : smoke e- cigs daily; entered on: 11/15/16 Sex Sex Representation Female (finding) Patient Care team information Care Team Personnel Name: Pacheco Boyle MD Position: [facility] Outreach Member Role: PCP Address: [address] [place] [address] - [address] [place] [address] [employer] [address] Telecom: Name: Judy Caballero MA Position: [facility] Office Staff Member Role: Primary Care Nurse Name: Karla Davidson RN Position: [facility] RN Member Role: Primary Care Nurse Name: Isabel Paris RN Position: [facility] RN Member Role: Primary Care Nurse Care Team Related Persons Name: ROBIN FRAZIER Name: OSMIN BRICENO Insurance Providers Guarantor name: EDMAR SHARLENE [facility] Plan Information #: 1 Payer: MEDICARE PART B OUTPT Member Number: NA Policy Number: NA Group Number: NA Health Plan Information #: 2 Payer: [facility] Member Number: NA Policy Number: NA Group Number: NA
== END 2024-05-06 13:22 | disposition home or self-care (01) ==
PROVIDERS: PCP Internal Medicine; Visit Provider Student in an Organized Health Care Education/Training Program
DX: E04.2 Nontoxic multinodular goiter (principal)
CPT/HCPCS: 99204

== ENCOUNTER → 2024-05-06 12:19 | Outpatient (BNVA) | payer MEDICARE, MEDICAID, SELFPAY | PROVIDERS: PCP Internal Medicine; Visit Provider Student in an Organized Health Care Education/Training Program | DX: E04.2 Nontoxic multinodular goiter (principal) | CPT/HCPCS: 99202 ==

== ENCOUNTER 2024-12-02 12:07 | Outpatient (REF) | payer MEDICARE, MEDICAID, SELFPAY ==
--- NOTE | ~2024-12-02 | US_ITS ---
EXAMINATION: US THYROID HISTORY: E04.2 - Nontoxic multinodular goiter TECHNIQUE: Real-time grayscale ultrasound imaging was performed and images were reviewed. COMPARISON: There are no prior studies available for comparison. FINDINGS: SIZE: The right thyroid lobe measures 3.9 x 1.9 x 2.2 cm. The left thyroid lobe measures 3.6 x 1.3 x 1.4 cm. The isthmus measures 5 mm. FLOW: Flow to the gland is normal. ECHOGENICITY: The echotexture of the gland is heterogeneous. NODULES: There are nodules in both thyroid lobes as described below: Nodule #: 1 Location: Midportion of the right thyroid lobe measuring 3.0 x 1.8 x 2.1 cm. Shape: Wider than tall (0 points) Margins: Smooth (0 points) Echotexture: Hyperechoic (1 point) Composition: Solid (2 points) Calcifications: Punctate calcifications (3 points) Total points: 6 TIRADS: TR4: Moderately suspicious. Nodule #: 2 Location: Midportion of the left thyroid lobe measuring 1.0 x 0.7 0.7 cm. Shape: Wider than tall (0 points) Margins: Smooth (0 points) Echotexture: Hyperechoic (1 point) Composition: Solid (2 points) Calcifications: None (0 points) Total points: 3 TIRADS: TR3: Mildly suspicious. US/US thyroid IMPRESSION: Moderately suspicious 3.0 x 1.8 x 2.1 cm nodule in the midportion of the right thyroid lobe. According to ACR TI-RADS guidelines below, ultrasound-guided fine-needle aspiration is recommended. ACR TI-RADS Guidelines TR1 (0 points): Benign. No follow-up or biopsy required TR2 (2 points): Not Suspicious. No biopsy or follow up indicated TR3 (3 points): Mildly Suspicious. FNA if >= 2.5 cm, Follow if >= 1.5 cm TR4 (4-6 points): Moderately Suspicious. FNA if >= 1.5 cm, Follow if >= 1.0 cm TR5 (>=7 points): Highly Suspicious. FNA if >= 1.0 cm, Follow if >= 0.5 cm Electronically signed by: Alexis Vo MD 12/02/2024 01:07 PM EDT RP
--- OUTSIDE RECORDS SUMMARY | 2024-12-02 13:00 | XMS_ITS | Clinical Summary ---
Author Organization [address] [facility] Address [address] [place] [address] Phone Care Team Providers Care Superintendent Communications Name Role Phone Pacheco Boyle MD Primary Care Provider [phone] Allergies Active Allergy Reactions Criticality Noted Date Comments Adhesive Tape-Silicones 11/08/2009 Other Reaction(s): Rash/Dermatitis ADHESIVE on bandages/tape/other Alcohol 05/25/2009 Other Reaction(s): Hives/Urticaria Duloxetine Hcl 06/20/2019 Cymbalta [duloxetine Hcl] Severe burning with urination Naloxegol 05/22/2016 Movantik [naloxegol] Penicillins 06/19/2017 Cannot take @ same time as the methotrexate Medications aspirin (ASPIR-81 ORAL) Take 81 mg by mouth daily. Active calcium carbonate/vitam in D3 (CALCIUM + D ORAL) Take by mouth daily. Active clindamycin (CLEOCIN) 150 mg capsule As directed For dental infections 8 Active clindamycin (CLEOCIN) 300 mg capsule 2 Caps. Prior to dental procedures 8 Active diazePAM (VALIUM) 5 mg tablet Take 5 mg by mouth every 8 hours as needed. Active folic acid (FOLVITE) 1 mg tablet daily. 7 Active furosemide (LASIX) 20 mg tablet Take 20 mg by mouth daily. Active hydroxychloroqu ine (PLAQUENIL) 200 mg tablet 1 Tab 2 times daily. 9 Active methotrexate 2.5 mg tablet 8 tabs weekly 7 Active polyethylene glycol (PEG) 17 gram/dose oral powder Take 17 g by mouth daily as needed. Active UNABLE TO FIND Vitamin D OR Take 1 Tab by mouth daily. Active Active Problems Problem Noted Date Diagnosed Date Rheumatoid arthritis involvi ng multiple sites with positive rheumatoid factor ([facility] V24, [facility] V28) 06/19/2017 Heterozygous factor V Leiden mutation ([facility] V 24) 10/13/2015 Lumbar radiculitis 08/06/2013 Fibromyalgia 12/05/2011 Muscle spasm 12/05/2011 Chronic pain syndrome 05/25/2009 Knee pain 05/25/2009 Low back pain 05/25/2009 Shoulder pain 05/25/2009 Immunizations Name Administration Dates Next Due Influenza trivalent, with pr eservative (Fluzone; Afluria) 6mo and older 05/13/2012 Surgical History Surgery Date Site/Laterality Comments TOTAL KNEE ARTHROPLASTY 06/10/2007 PROCEDURE: [place] ARTHRP KNE CONDYLE&PLATU MEDIAL&LAT COMPARTMENTS Family History Medical History Relation Name Comments Autoimmune disease Neg Hx Breast cancer Neg Hx Colon cancer Neg Hx Coronary artery disease Neg Hx Diabetes Neg Hx Heart attack Neg Hx Heart failure Neg Hx Hyperlipidemia Neg Hx Hypertension Neg Hx Mental illness Neg Hx Prostate cancer Neg Hx Sleep apnea Neg Hx Thyroid disease Neg Hx Social History Tobacco Use Types Packs/Day Years Used Date Smoking Tobacco: Former Cigarettes 1.3 41.8 0 04/23/1969 - 02/15/2011 Smokeless Tobacco: Never Quit: 02/28/2011 Alcohol Use Standard Drinks/Week Comments No 0 (1 standard drink = 0.6 oz pur e alcohol) Comments Unknown Sex and Gender Information Value Date Recorded Sex Assigned at Not on file Legal Sex Female 12:58 PM EST Gender Identity Not on file Sexual Orientation Not on file Obstetrics History Last Filed Vital Signs Vital Sign Reading Time Taken Comments Blood Pressure 120/80 06/17/2024 8:49 AM EST Pulse - - Temperature - - Respiratory Rate - - Oxygen Saturation - - Inhaled Oxygen Concentration - - Weight 102 kg (225 lb) 06/17/2024 8:49 AM EST Height 157.5 cm (5' 2 ) 06/17/2024 8:49 AM EST Body Mass Index 41.15 06/17/2024 8:49 AM EST Plan of Treatment Upcoming Encounters Date Type Department Care Team (Late st Contact Info) Description 12/26/2024 8:20 AM EDT Office Visit [facility] [place] [address] [place] [address] Inderjit Whitten MD [address] [place] [address] [address] [place] [address] Health Maintenance Due Date Last Done Comments COVID-19 Vaccine (#1) 1955 DTaP,Tdap,and Td Vaccines (1 - Tdap) 1969 Pneumococcal Vaccine: 50+ Years (1 of 1 - PCV) 11/16/1999 Zoster Vaccines (2 of 3) 03/06/2015 01/09/2015 Cholesterol Screening (Lipid Panel) 04/03/2024 Colorectal Cancer Screening: Colonoscopy 04/03/2024 Falls Risk Assessment 04/03/2024 Hepatitis C Screening 04/03/2024 Lung Cancer Screening (Low Dose CT) 04/03/2024 Medicare Annual Wellness Visit 04/03/2024 Osteoporosis Screening (Bone Density Screening) 04/03/2024 Social Influencers of Health Screening 04/03/2024 Depression Screening 04/23/2024 RSV Immunization Adult Patients (1 - 1-dose 75+ series) 2024 Influenza Vaccine (#1) 2024 , 02/18/2019, 01/09/2015, Additional history exists HIB Vaccines Aged Out No longer eligi ble based on patient's age to complete this topic HPV Vaccines Aged Out No longer eligi ble based on patient's age to complete this topic Hepatitis A Vaccines Aged Out No long er eligible based on patient's age to complete this topic Hepatitis B Vaccines Aged Out No long er eligible based on patient's age to complete this topic IPV Vaccines Aged Out No longer eligi ble based on patient's age to complete this topic MMR Vaccines Aged Out No longer eligi ble based on patient's age to complete this topic Meningococcal ACWY Vaccine Aged Out N o longer eligible based on patient's age to complete this topic Meningococcal B Vaccine Aged Out No l onger eligible based on patient's age to complete this topic RSV Immunization Patients Under 20 months Aged Out No longer eligible based on patient's age to complete this topic Varicella Vaccines Aged Out No longer eligible based on patient's age to complete this topic Insurance MEDICARE MEDICAID - [place] Care Teams Superintendent Communications Relationship Specialty Start Date End Date Pacheco Boyle MD [address] [place] [address] PCP - General 05/13/09
== END 2024-12-02 12:08 | disposition home or self-care (01) ==
LOC: HO.US 12:07
PROVIDERS: PCP Internal Medicine; Visit Provider Student in an Organized Health Care Education/Training Program
DX: E04.2 Nontoxic multinodular goiter (principal)
CPT/HCPCS: 76536

== ENCOUNTER → 2024-12-02 12:13 | Outpatient (BNV) | payer MEDICARE, MEDICAID, SELFPAY | PROVIDERS: PCP Internal Medicine; Visit Provider Radiology Diagnostic Radiology | DX: E04.2 Nontoxic multinodular goiter (principal) | CPT/HCPCS: 76536 ==

== ENCOUNTER 2024-12-18 12:20 | Outpatient (AMB) | payer MEDICARE, MEDICAID, SELFPAY ==
[2024-12-18 12:23] VITALS: BP 128/82; PULSE 96; O2SAT 97; BMI 43.5
--- NOTE | 2024-12-18 12:23 | A.OFFVIS_ITS ---
Vital Signs 3 12/18/24 12:23 Height 5 ft 2 in Weight 238 lb 1.588 oz BMI 43.5 BP 128/82 Blood Pressure Location Lt brachial Position Sitting Pulse 96 Pulse Source Pulse Oximeter Pulse Oximetry (%) 97 Oxygen Delivery Method Room Air Intake Visit Reasons: Osteoporosis & thyroid nodule Intake Note: Patient present today for Osteoporosis & thyroid nodule. Tire Fixer Required: No Accompanied by: Self / Same As Patient Allergies acetaminophen (From Percocet) Allergy (Intermediate, Verified 12/18/24 12:28) Hives bupropion (From Wellbutrin) Allergy (Intermediate, Verified 12/18/24 12:28) Anxiety morphine Allergy (Intermediate, Verified 12/18/24 12:28) Hives oxycodone (From Percocet) Allergy (Intermediate, Verified 12/18/24 12:28) Hives tramadol (From Ultram) Allergy (Intermediate, Verified 12/18/24 12:28) Anxiety naloxegol (From Movantik) Allergy (Unknown, Verified 12/18/24 12:28) Unknown Medication List - Last Reconciled 12/18/24 by Dia Smith MD acetaminophen ER (Pain Relief (acetaminophen)) 650 mg PO Q8H adalimumab (Humira(CF) Pen) 40 mg subcut Q2W aspirin (Adult Aspirin Regimen) 81 mg PO DAILY bisacodyl (Dulcolax (bisacodyl)) 5 mg PO BEDTIME diazepam 5 mg PO TID PRN folic acid 1 mg PO DAILY furosemide 40 mg PO DAILY hydroxychloroquine 200 mg PO BID methotrexate sodium 20 mg PO QWEEK metolazone 2.5 mg PO DAILY naldemedine (Symproic) 0.2 mg PO DAILY oxycodone ER (OxyContin) 30 mg PO TID oxycodone ER (OxyContin) 40 mg PO BID polyethylene glycol 3350 (Miralax) 17 grams PO DAILY HPI Comments Details: 74-year-old female here today for follow up of thyroid nodule. She is also here today to establish care for osteoporosis. Osteoporosis DEXA scan did at [facility] 07/30/2024 showed normal bone density of the spine with T-score of 3.1 with a an increase of 1.5% from previous, however does not state when the last bone density was done, total hip T-score of-0.8 also consistent with normal bone density with a 6.9% decrease from previous. Osteoporosis of the femoral neck with T-score of-3.2 with 35.7% decrease from previous. Osteoporosis of the forearm with a T-score of-3.9. 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 Fracture History: no fracture Height loss: 5 ' 4 max height now 5 ' 2 Back pain: has chronic back pain for many yeas, on oxycontin Pharmacotherapeutic hx: none Drug holiday none Family history: no know history of osteoporosis Estrogen use: Menstrual hx: menarch 11 years, regular periods during reproductive age, menopause 49 age, no HRT, 2 pregnancies ,first preganancy age 20 years Secondary risk factors: Steroid use: was on prednisone for 3 months or so 2016, rheumatoid arthritis Hyperthyroidism: Neg Seizure medication use: None Chemo or Radiation use: Neg Heparin Use: yes , has history of DVT 1993, then coumadin a year or two History of eating disorder: Negative shelter immobilization: Negative History of kidney stones or disease: negative PI Use: no, but has acid reflux Chronic inflammatory lung disease: Negative Chronic inflammatory bowel disease: Negative Daily calcium intake: calcium 1200 mg of supplement , milk: a glass every day plus in cereal, cheese: once a week, yogurt: none Vitamin D intake: 800 units daily Exercise:none Smoking history:vaping, quit smoking 1994 , smoked for 10 years Dental: Has regular dental cleaning, peridontal disease, has had bone grafting wears pads, incontinent of urine eveyr other day , due to metolazone Thyroid nodules Patient was previously following at [facility], here today for a 2nd opinion. She does note a history of thyroid nodules about 10-15 years ago and had a biopsy in the past at [facility] by Dr. Sands , reportedly this was benign but we do not have any records of this. She had a CT head of the brain in April 2023 which revealed a 1.8 cm right lobe thyroid nodule. Subsequently patient underwent ultrasound of the thyroid in August 2023 which revealed a dominant 2.9 cm solid isoechoic TR 3 right mid lobe nodule. Another inferior right thyroid lobe 0.9 cm solid hyperechoic TR 3 nodule possibly with a extrathyroidal location. The left thyroid gland appeared heterogenous with a 0.8 cm solid hyperechoic not taller than wide, no echogenic foci TR 3 nodule located inferior to the lower pole of the left gland possibly suggestive of a lymph node. Status post FNA of the right dominant nodule 11/22/2023, with benign cytology Troy category 2. Labs from September 2023 showed normal TSH of 1.7, TPO antibodies normal at 13. Reports constipation. Reports low energy. Patient currently denies heat or cold intolerance, diarrhea, hair loss, palpitation, anxiety, weight changes, mood changes,, changes in appearance of eyes or vision changes, tremors, increased diaphoresis or dry skin. ? Patient reports intermittent difficulty swallowing pills. Feels left neck is more prominent. no pain on swallowing. Feels reports voice hoarseness intermittently. Patient denies any history of childhood neck radiation. Denies having ever used lithium, amiodarone . Is on some vitamin B supplements which might have biotin. Patient denies any family history of thyroid cancer . Maternal uncle: thyroid disease Interval history 12/18/2024 Ultrasound thyroid 12/02/2024: Showed right mid lobe dominant 3 X1.8 X2.1 cm solid hyperechoic TR 4 nodule with punctate echogenic foci. A left midpole 1 cm solid hypoechoic TR 3 nodule. TSH and free T4 normal from September 2024. Physical exam General: sitting comfortably in no acute distress HEENT: normocephalic/atraumatic Neck: supple, palpable 2 cm right-sided nodule, palpable 1 cm left-sided thyroid nodule, palpable left-sided 0.5 cm lymph node in the upper posterior jugular chain Cardiac: normal heart sounds Pulm: normal breath sounds B/L, no added breath sounds Abd: not distended, no tenderness Extremities: no edema, no signs of myxedema EXAMINATION: US THYROID 12/02/24 HISTORY: E04.2 - Nontoxic multinodular goiter TECHNIQUE: Real-time grayscale ultrasound imaging was performed and images were reviewed. COMPARISON: There are no prior studies available for comparison. FINDINGS: SIZE: The right thyroid lobe measures 3.9 x 1.9 x 2.2 cm. The left thyroid lobe measures 3.6 x 1.3 x 1.4 cm. The isthmus measures 5 mm. FLOW: Flow to the gland is normal. ECHOGENICITY: The echotexture of the gland is heterogeneous. NODULES: There are nodules in both thyroid lobes as described below: Nodule #: 1 Location: Midportion of the right thyroid lobe measuring 3.0 x 1.8 x 2.1 cm. Shape: Wider than tall (0 points) Margins: Smooth (0 points) Echotexture: Hyperechoic (1 point) Composition: Solid (2 points) Calcifications: Punctate calcifications (3 points) Total points: 6 TIRADS: TR4: Moderately suspicious. Nodule #: 2 Location: Midportion of the left thyroid lobe measuring 1.0 x 0.7 0.7 cm. Shape: Wider than tall (0 points) Margins: Smooth (0 points) Echotexture: Hyperechoic (1 point) Composition: Solid (2 points) Calcifications: None (0 points) Total points: 3 TIRADS: TR3: Mildly suspicious. US/US thyroid IMPRESSION: Moderately suspicious 3.0 x 1.8 x 2.1 cm nodule in the midportion of the right thyroid lobe. According to ACR TI-RADS guidelines below, ultrasound-guided fine-needle aspiration is recommended. REPLACED BY [facility] Medical History (Updated 12/18/24 @ 13:23 by Dia Smith MD) Osteoporosis Factor 5 Leiden mutation, heterozygous Rheumatoid arthritis Multinodular goiter Surgical History Hx of vascular surgery Hx of breast augmentation History of colonoscopy Hx of cholecystectomy History of YAG laser capsulotomy of lens of left eye Hx of cataract surgery History of left knee replacement Family History Mother History of left hip replacement Father No known health problems Social History Household Members: None Housing: House Do you presently have visiting nurse or other home services: Yes Alcohol intake: never Patient Tobacco Use Status: Never used Tobacco e-Cigarette/Vaping Use: Currently Using Physical Exam Vital Signs: Last Vital Signs Pulse 96 12/18/24 12:23 BP 128/82 12/18/24 12:23 Pulse Ox 97 12/18/24 12:23 Oxygen Delivery Method Room Air 12/18/24 12:23 BMI result Body Mass Index 43.5 Assessment & Plan Assessment & Plan (1) Multinodular goiter: Code(s): E04.2 - Nontoxic multinodular goiter Category: Medical Plan: 73-year-old female with no personal history of head or neck radiation, with no family history of thyroid cancer here today to establish care for multinodular goiter. She does note a history of thyroid nodules about 10-15 years ago and had a biopsy in the past at [facility] by Dr. Sands , reportedly this was benign but we do not have any records of this. She had a CT head of the brain in April 2023 which revealed a 1.8 cm right lobe thyroid nodule. Subsequently patient underwent ultrasound of the thyroid in August 2023 which revealed a dominant 2.9 cm solid isoechoic TR 3 right mid lobe nodule. Another inferior right thyroid lobe 0.9 cm solid hyperechoic TR 3 nodule possibly with a extrathyroidal location. The left thyroid gland appeared heterogenous with a 0.8 cm solid hyperechoic not taller than wide, no echogenic foci TR 3 nodule located inferior to the lower pole of the left gland possibly suggestive of a lymph node. Status post FNA of the right dominant nodule 11/22/2023, with benign cytology Troy category 2. Ultrasound thyroid 12/02/2024: Showed right mid lobe dominant 3 X1.8 X2.1 cm solid hyperechoic TR 4 nodule with punctate echogenic foci. A left midpole 1 cm solid hypoechoic TR 3 nodule. TSH and free T4 normal from September 2024. Plan: -ordered ultrasound of the thyroid to be done in October 2025 -we will plan to repeat TSH and free T4 in October 2025 (2) Osteoporosis: Code(s): M81.0 - Age-related osteoporosis without current pathological fracture Category: Medical Qualifiers: Osteoporosis type: age-related Presence of current pathological fracture: without current pathological fracture Qualified Code(s): M81.0 - Age- related osteoporosis without current pathological fracture Plan: 74-year-old female also establishing care today with the us for osteoporosis. Diagnosed in July 2024 when DEXA scan showed did at [facility] [place] 07/30/2024 showed normal bone density of the spine with T-score of 3.1 with a an increase of 1.5% from previous, however does not state when the last bone density was done, total hip T-score of-0.8 also consistent with normal bone density with a 6.9% decrease from previous. Osteoporosis of the femoral neck with T-score of-3.2 with 35.7% decrease from previous. Osteoporosis of the forearm with a T-score of-3.9. Her risk factors for osteoporosis include age, being postmenopausal, history of rheumatoid arthritis with some steroid use in the past,. I discussed conservative measures including adequate calcium intake, adequate vitamin D levels as well as the role of weightbearing exercises in general being good for bone health. In addition to conservative management with calcium and vitamin D; I do believe she would benefit from antiresorptive therapy in terms of reducing future fracture risk. Prior to initiating therapy I would like her to complete work-up to get baseline bone turnover markers as well as rule out secondary causes of osteoporosis. Plan: -ordered secondary workup along with bone resorption markers -continue vitamin-D 800 units daily -incorporate 1000 mg of calcium between diet and supplement -follow up in 6-8 weeks to discuss results and start therapy Plan I spent 45 minutes in reviewing the record, seeing the patient and documenting in the medical record. Orders: Orders 2 US thyroid 11/02/25 E04.2 - Nontoxic multinodular goiter Albumin Level Today M81.0 - Age-related osteoporosis without current pathological fracture Calcium Today M81.0 - Age-related osteoporosis without current pathological fracture Creatinine, 24 Hr Group Today M81.0 - Age-related osteoporosis without current pathological fracture Collagen Type I C-Telopeptide Today M81.0 - Age-related osteoporosis without current pathological fracture Alkaline Phosphatase Bone Today M81.0 - Age-related osteoporosis without current pathological fracture Vitamin D 25-OH Total Today M81.0 - Age-related osteoporosis without current pathological fracture Calcium, Ionized Today M81.0 - Age-related osteoporosis without current pathological fracture Phosphorus Today M81.0 - Age-related osteoporosis without current pathological fracture Calcium, 24 Hr Ur Today M81.0 - Age-related osteoporosis without current pathological fracture Parathyroid Hormone Intact Today M81.0 - Age-related osteoporosis without current pathological fracture Creatinine Today M81.0 - Age-related osteoporosis without current pathological fracture Protein Electrophoresis, Serum Today M81.0 - Age-related osteoporosis without current pathological fracture Immunofixation Pnl, Serum Today M81.0 - Age-related osteoporosis without current pathological fracture Cortisol, Free 24Hr Urine Today M81.0 - Age-related osteoporosis without current pathological fracture Patient Instructions: do 24 hr urine collection and same day as you hand in the urine , do fasting early AM blood work 24 hr urine collection instructions You have been asked to collect your urine for 24 hours to assess for calcium excretion. You must choose a 24 hour period of time when you will be home. The morning of the first day, DISCARD the FIRST morning void and then note the time. You will collect every single void from then on for 24 hours. For example, if you wake up at 6am and urinate, flush down that void. You will then collect every drop of urine all day and all night through 6am the following day. You will urinate one last time at 6am for the collection. The jug of urine must be kept in the refrigerator until you bring it to the lab. Continue vitamin D 800 units daily Incorporate 5385-1654 mg of calcium between supplement and diet Coding Level of Care Code Est Pt Level 5 (14650) Diagnoses Multinodular goiter E04.2 Age-related osteoporosis without current pathological fracture M81.0 Osteoporosis type: age-related Presence of current pathological fracture: without current pathological fracture Time Spent (min) 45
--- OUTSIDE RECORDS SUMMARY | 2024-12-18 13:13 | XMS_ITS | Clinical Summary ---
Author Organization [address] [facility] Address [address] [place] [address] Phone Care Team Providers Care Aviation Project Manager Name Role Phone Pacheco Boyle MD Primary Care Provider [phone] Allergies Active Allergy Reactions Criticality Noted Date [...] ng multiple sites with positive rheumatoid factor ([facility] V24, [facility] V28) 06/19/2017 Heterozygous factor V Leiden mutation ([facility] V 24) 10/13/2015 Lumbar radiculitis 08/06/2013 Fibromyalgia 12/05/2011 Muscle spasm 12/05/2011 Chronic pain syndrome 05/25/2009 Knee pain 05/25/2009 Low back pain 05/25/2009 Shoulder pain 05/25/2009 Immunizations Name Administration Dates Next Due Influenza trivalent, with pr eservative (Fluzone; Afluria) 6mo and older 05/13/2012 Surgical History Surgery Date Site/Laterality Comments TOTAL KNEE ARTHROPLASTY 06/10/2007 PROCEDURE: CT ARTHRP KNE CONDYLE&PLATU MEDIAL&LAT COMPARTMENTS Family History [...] Description 12/26/2024 8:20 AM EDT Office Visit [facility] [place] [address] [place] [address] Inderjit Whitten MD [address] [place] [address] [address] [place] [address] Health Maintenance Due Date Last Done Comments [...] Insurance MEDICARE MEDICAID - [place] Care Teams Aviation Project Manager Relationship Specialty Start Date End Date Pacheco Boyle MD [address] [place] [address] PCP - General 05/13/09
== END 2024-12-18 13:18 | disposition home or self-care (01) ==
LOC: HO.ENCR 12:21
PROVIDERS: PCP Internal Medicine; Visit Provider Student in an Organized Health Care Education/Training Program
DX: E04.2 Nontoxic multinodular goiter (principal); M81.0 Age-related osteoporosis without current pathological fracture
CPT/HCPCS: 99215

== ENCOUNTER → 2024-12-18 12:20 | Outpatient (BNVA) | payer MEDICARE, MEDICAID, SELFPAY | PROVIDERS: PCP Internal Medicine; Visit Provider Student in an Organized Health Care Education/Training Program | DX: E04.2 Nontoxic multinodular goiter (principal); M81.0 Age-related osteoporosis without current pathological fracture | CPT/HCPCS: 99212 ==

== ENCOUNTER 2025-03-04 08:35 | Outpatient (AMB) | payer MEDICARE, MEDICAID, SELFPAY ==
--- OUTSIDE RECORDS SUMMARY | 2025-03-04 08:56 | XMS_ITS | Clinical Summary ---
Author Organization [address] [place] [address] Address [address] [place] [address] Phone Care Team Providers Care Marketing Information Manager Name Role Phone Pacheco Boyle MD Primary Care Provider [phone] Allergies Active Allergy Reactions Criticality Noted Date [...] D ORAL) Take by mouth daily. Active diazePAM (VALIUM) 5 mg tablet Take 1 tablet (5 mg total) by mouth 3 (three) times a day. Active folic acid (FOLVITE) 1 mg tablet Take 1 tablet (1,000 mcg total) by mouth 1 (one) time each day. 7 Active hydroxychloroqu ine (PLAQUENIL) 200 mg tablet 1 Tab 2 times daily. 9 Active methotrexate 2.5 mg tablet 8 tabs weekly 7 Active polyethylene glycol (PEG) 17 gram/dose oral powder Take 17 g by mouth daily as needed. Active UNABLE TO FIND Vitamin D3 800 unit Take 1 Tab by mouth daily. Active acetaminophen (TYLENOL 8 HOUR) 650 mg 8 hr tablet Take 2 tablets (1,300 mg total) by mouth every 8 (eight) hours if needed for mild pain. Do not crush, chew, or split. Active amoxicillin (AMOXIL) 500 mg tablet Take 4 tablets (2,000 mg total) by mouth. Prior to dental procedure Active naldemedine (Symproic) 0.2 mg tablet Take 1 tablet (0.2 mg total) by mouth 1 (one) time each day. Active lactose-reduced food (ENSURE ORAL) Take by mouth. 1-2 daily Active oxyCODONE (OxyCONTIN) 40 mg 12 hr abuse-deterrent tablet Take 1 tablet (40 mg total) by mouth 3 (three) times a day if needed for severe pain. Do not crush, chew, or split. Max Daily Amount: 120 mg Active vit C/E/Zn/coppr/edmar tein/zeaxan (PRESERVISION AREDS-2 ORAL) Take 1 capsule by mouth 2 (two) times a day. Active carboxymethylce llulose (REFRESH PLUS) 0.5 % ophthalmic solution 1 drop if needed for dry eyes. Active metOLazone (ZAROXOLYN) 2.5 mg tablet Take 1 tablet once a week 10 tablet 3 5 Active torsemide (DEMADEX) 20 mg tablet Take 1 tablet (20 mg total) by mouth 2 (two) times a day. 60 tablet 5 5 Active Active Problems Problem Noted Date Diagnosed Date Left sided heart 02/09/2025 Overview (02/09/2025): SLIGHTLY DILATED Localized edema 12/26/2024 Assessment & Plan (12/26/2024 12:17 PM EDT): The patient has significant edema on the right leg mild edema with a left leg. No indication of heart failure or diastolic dysfunction or significant valvular abnormalities or pulmonary hypertension on echocardiography. 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 She has had no ulcerations no wounds at this time. I will refer the patient for further testing: The patient says that she is was told that she did not need anticoagulation for Leiden 5 factor deficiency. She is only on aspirin. 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 I gave her in her lab slip to check a basic metabolic profile. SOBOE (shortness of breath on exertion) 12/26/19 25 Rheumatoid arthritis involvi ng multiple sites with positive rheumatoid factor ([facility] V24, [facility] V28) 06/19/2017 Heterozygous factor V Leiden mutation ([facility] V 24) 10/13/2015 Lumbar radiculitis 08/06/2013 Fibromyalgia 12/05/2011 Muscle spasm 12/05/2011 Chronic pain syndrome 05/25/2009 Knee pain 05/25/2009 Low back pain 05/25/2009 Shoulder pain 05/25/2009 Encounters Date Type Department Care Team Description 02/24/2025 Telephone [facility] Cardiology [facility] [address] [facility] [address] [place] [id number] Inderjit Whitten MD 02/09/2025 Results Follow-Up [facility] [address] [facility] [address] [place] [id number] Ebony Del Toro NP 01/30/20[address] [facility] [address] [facility] [address] [place] [id number] Inderjit Whitten MD 12/29/2024 Telephone [facility] [address] [facility] [address] [place] [id number] Inderjit Whitten MD 12/26/2024 8:20 AM EDT Office Visit [facility] [address] [facility] [address] [place] [id number] Inderjit Whitten MD Localized edema (Primary Dx); SOB (shortness of breath) on exertion from Last 3 Months Immunizations Immunization Administration Dates Next Due Influenza trivalent, with pr eservative (Fluzone; Afluria) 6mo and older 05/13/2012 Surgical History Surgery Date Site/Laterality Comments TOTAL KNEE ARTHROPLASTY 06/10/2007 PROCEDURE: CA ARTHRP KNE CONDYLE&PLATU MEDIAL&LAT COMPARTMENTS Medical History Medical History Date Comments Chronic back pain Leg weakness Multiple falls Elevated transaminase level Physical deconditioning Thrombophlebitis arm Multiple falls Bilateral leg edema Family History Medical History Relation Name Comments [...] Sign Reading Time Taken Comments Blood Pressure 120/70 12/26/2024 8:24 AM EDT Pulse 73 12/26/2024 8:24 AM EDT Temperature - - Respiratory Rate - - Oxygen Saturation 98% 12/26/2024 8:24 AM EDT Inhaled Oxygen Concentration - - Weight 107 kg (236 lb 12.8 oz) 12/26/2024 8:24 A M EDT Height 162.6 cm (5' 4 ) 12/26/2024 8:24 AM EDT Body Mass Index 40.65 12/26/2024 8:24 AM EDT Plan of Treatment Upcoming Encounters Date Type Department Care Team (Late st Contact Info) Description 03/06/2025 9:10 AM EST Office Visit [facility] [address] [facility] [address] [place] [phone] Ebony Del Toro NP [facility] [address] [place] [phone] 03/10/2025 10:00 AM EST Ancillary Procedure [facility] Cardiology [facility] [address] [place] [phone] Health Maintenance Due Date Last Done Comments Colorectal Cancer Screening: Colonoscopy 1950 COVID-19 Vaccine (#1) 1954 DTaP,Tdap,and Td Vaccines (1 - Tdap) 1968 Pneumococcal Vaccine: 50+ Years (1 of 1 - PCV) 11/16/1999 Zoster Vaccines (2 of 3) 03/06/2015 01/09/2015 Cholesterol Screening (Lipid Panel) 04/03/2024 Falls Risk Assessment 04/03/2024 Hepatitis C Screening 04/03/2024 Lung Cancer Screening (Low Dose CT) 04/03/2024 Medicare Annual Wellness Visit 04/03/2024 Osteoporosis Screening (Bone Density Screening) 04/03/2024 Social Influencers of Health Screening 04/03/2024 Depression Screening 04/23/2024 RSV Immunization Adult Patients (1 - 1-dose 75+ series) 2024 Influenza Vaccine (#1) 2024 , 02/18/2019, 01/09/2015, Additional history exists Hypertension/CHF/CAD Annual BMP Blood Test 02/04/2026 02/04/2025, 01/15/2025, 12/31/2024 HIB Vaccines Aged Out No longer eligi [...] on patient's age to complete this topic Procedures Procedure Name Priority Date/Time Associated Diagnosis Comments BASIC METABOLIC PANEL Routine 02/04/2025 8:14 AM EDT Localized edema BASIC METABOLIC PANEL Routine 01/15/2025 8:05 AM EDT Localized edema BASIC METABOLIC PANEL Routine 12/31/2024 8:04 AM EDT Systolic congestive heart failure, unspecified HF chronicity (CMS/HCC V24, CMS/HCC V28) ECG 12-LEAD Routine 12/26/2024 8:40 AM EDT SOB (shortness of breath) on exertion from Last 3 Months Results * (ABNORMAL) Basic metabolic panel (02/04/2025 8:14 AM EDT) Only the most recent of3 resultswithin the time period is included. Glucose 132(H) 70 - 99 mg/dL [facility] 1 Blood Urea Nitrogen (BUN) 33(H) 8 - 27 mg/dL [facility] 1 Creatinine 1.19(H) 0.57 - 1.00 mg/dL [facility] 1 eGFR 48(L) >59 mL/min/1.7 3 [facility] 1 BUN/Creatinine Ratio 28 12 - 28 [facility] 1 Sodium 139 134 - 144 mmol/L [facility] 1 Potassium 3.7 3.5 - 5.2 mmol/L [facility] 1 Chloride 97 96 - 106 mmol/L [facility] 1 Carbon Dioxide 25 20 - 29 mmol/L [facility] 1 Calcium 9.2 8.7 - 10.3 mg/dL [facility] 1 Blood Venous blood specimen / Unknown 02/04/2025 8:14 AM EDT 02/04/2025 Narrative [facility] 1 - 02/05/2025 1:06 AM EDT Performed at: 01 - [facility] [id number] Woodworking Machinist: Shelia Hogan MD, Phone: [phone] us Ebony Del Toro PATENT CLERK LAB BLOOD ORDERABLES Final R esult [facility] 1 * ECG 12 lead (12/26/2024 8:40 AM EDT) Ventricular Rate ECG 71 BPM GEMUSE Atrial Rate 71 BPM GEMUSE P-R Interval 178 ms GEMUSE QRS Duration 96 ms GEMUSE Q-T Interval 396 ms GEMUSE QTc 430 ms GEMUSE P Wave Danube 96 degrees GEMUSE R Danube 14 degrees GEMUSE T Danube 67 degrees GEMUSE ECG Interpretation Normal sinus rhythm Normal ECG No previous ECGs available Confirmed by Alee WHITTEN JAMES ([id number]) on 12/26/2024 11:54:35 AM GEMUSE 12/26/2024 8:40 AM EDT 12/26/2024 11:54 AM EDT us Inderjit Whitten MD ECG ORDERABLES Final Result GEMUSE from Last 3 Months Insurance MEDICARE MEDICAID - [place] Care Teams Marketing Information Manager Relationship Specialty Start Date End Date Pacheco Boyle MD [facility] [address] [place], [place] [phone] PCP - General 05/13/09
[2025-03-04 09:19] VITALS: BMI 43.9
--- NOTE | 2025-03-04 09:19 | A.PHYSOV_ITS ---
Vital Signs 03/04/25 09:19 Height 5 ft 2 in Weight 240 lb BMI 43.9 Intake Visit Reasons: F/U: 3M FUV Intake Note: 74 year old female in office today for her 3 month narcotic follow up Consulting Application Engineer Required: No Allergies acetaminophen (From Percocet) Allergy (Intermediate, Verified 03/04/25 09:18) Hives bupropion (From Wellbutrin) Allergy (Intermediate, Verified 03/04/25 09:18) Anxiety morphine Allergy (Intermediate, Verified 03/04/25 09:18) Hives oxycodone (From Percocet) Allergy (Intermediate, Verified 03/04/25 09:18) Hives tramadol (From Ultram) Allergy (Intermediate, Verified 03/04/25 09:18) Anxiety naloxegol (From Movantik) Allergy (Unknown, Verified 03/04/25 09:18) Unknown HPI Comments Details: History of Present Illness The patient is a 74-year-old female presenting with concerns related to chronic pain syndrome, recurrent urinary tract infections and management of chronic conditions including rheumatoid arthritis and osteoporosis. The patient reports recurrent urinary tract infections, attributed to her immunocompromised state due to rheumatoid arthritis and its treatment with methotrexate. She is currently on a course of Levaquin, taking 250 mg daily for three days, with the first dose taken this morning. The patient has a history of rheumatoid arthritis, managed with methotrexate, and previously with Humira. She experiences lumps that are painful, which she attributes to arthritis and possibly fibromyalgia. The patient has been diagnosed with severe osteoporosis, particularly affecting her neck and wrist, as identified in a DEXA scan conducted on August 07, 2024. She has not yet commenced treatment due to concerns about the efficacy and risks of injections proposed for osteoporosis management. The patient also has Factor V Leiden, which increases her risk of blood clots, complicating potential osteoporosis treatments that may exacerbate clotting risks. For chronic pain associated with the above condition she has been managed with OxyContin 40 mg 3 times a day. She has been stable on her medication regimen. Prescription monitoring report was reviewed. Medication allowed for better quality of life. No side effects are reported. She denies severe constipation or cognitive changes. Pain Description - Painful lumps attributed to arthritis and possibly fibromyalgia. Results - DEXA scan on August 07: Severe osteoporosis noted in neck and wrist. [facility] Medical History (Updated 03/04/25 @ 09:47 by Nolan Sierra DO) Osteoporosis Factor 5 Leiden mutation, heterozygous Rheumatoid arthritis Multinodular goiter Surgical History Hx of vascular surgery Hx of breast augmentation History of colonoscopy Hx of cholecystectomy History of YAG laser capsulotomy of lens of left eye Hx of cataract surgery History of left knee replacement Family History Mother History of left hip replacement Father No known health problems Social History (Updated 03/04/25 @ 09:18 by Ayana Meyer MA) Household Members: None Housing: House Do you presently have visiting nurse or other home services: No Alcohol intake: never Patient Tobacco Use Status: Never used Tobacco e-Cigarette/Vaping Use: Currently Using Use of substances other than those prescribed or required for medical reasons: No Current occupational status: disabled Review of Systems Narrative Review of Systems - Musculoskeletal: Reports painful lumps, possibly related to arthritis and fibromyalgia. - Hematologic: Reports history of Factor V Leiden, increasing risk of blood clots. - Genitourinary: Reports recurrent urinary tract infections. Physical Exam Exam Exam: Physical Exam Patient appears to be in no acute distress, appropriately conversant oriented. Her gait was not tested today. She was examined in the wheelchair. Severe ulnar deviation of metacarpophalangeal joints in both upper extremities. N eurological examination nonfocal, severe edema of both lower extremities, cervical and lumbar range of motion restricted. Neurological examination generally nonfocal. Patient demonstrates no upper motor neuron signs. Vital Signs: BMI result Body Mass Index 43.9 Assessment & Plan Assessment & Plan (1) Rheumatoid arthritis: Code(s): M06.9 - Rheumatoid arthritis, unspecified Category: Medical (2) Chronic pain syndrome: Code(s): G89.4 - Chronic pain syndrome Category: Medical (3) Fibromyalgia: Code(s): M79.7 - Fibromyalgia Category: Medical Plan Pain Management - Affect: Pain impacts daily activities and mood, particularly due to arthritis and fibromyalgia. - Analgesia: Currently using methotrexate for rheumatoid arthritis; no specific pain medication mentioned for fibromyalgia. - Adverse Effects: No specific adverse effects from pain medication discussed. - Activities of Daily Living: Pain affects mobility, necessitating the use of a wheelchair for longer distances. - Aberrant Drug Related Behaviors: No aberrant behaviors reported. Plan Patient was informed and verbally consented to the use of an ambient scribe for clinic note documentation during this visit. 1. Urinary Tract Infection The patient is currently on Levaquin, 250 mg daily for three days, to address the recurrent urinary tract infections. 2. Rheumatoid Arthritis The patient's rheumatoid arthritis is managed with methotrexate, and she has pr eviously been on Humira. 3. Fibromyalgia The patient experiences painful lumps, which may be related to fibromyalgia, and is currently not on specific medication for this condition. 4. Osteoporosis The patient has severe osteoporosis, particularly in the neck and wrist, but has not started treatment due to concerns about the risks and efficacy of proposed injections. 5. Factor V Leiden The presence of Factor V Leiden complicates potential osteoporosis treatments due to increased risk of blood clots. Discussion Notes During the consultation, we discussed the management of the patient's recurrent urinary tract infections with Levaquin and the implications of her rheumatoid arthritis treatment on her immune system. We also reviewed the recent DEXA scan results indicating severe osteoporosis and deliberated on the potential risks and benefits of proposed injections, considering her Factor V Leiden condition. Patient Instructions - Continue taking Levaquin as prescribed for urinary tract infection. - Follow up with your advertising material distributor regarding rheumatoid arthritis management. - Discuss osteoporosis treatment options with your healthcare provider, considering the risks associated with Factor V Leiden. Medications: Changed From oxycodone ER (OxyContin) 40 mg PO BID 0RF G89.4 - Chronic pain syndrome, M06.9 - Rheumatoid arthritis, unspecified To oxycodone ER (OxyContin) Partial fill upon request 40 mg PO TID 84 tabs 0RF 28 days G89.4 - Chronic pain syndrome, M06.9 - Rheumatoid arthritis, unspecified Coding Level of Care Code Est Pt Level 3 (93095) Diagnoses Rheumatoid arthritis M06.9 Chronic pain syndrome G89.4 Fibromyalgia M79.7
== END 2025-03-04 09:49 | disposition home or self-care (01) ==
LOC: HO.HPHYS 08:37
PROVIDERS: PCP Internal Medicine; Visit Provider Physical Medicine & Rehabilitation
DX: M06.9 Rheumatoid arthritis, unspecified (principal); G89.4 Chronic pain syndrome; M79.7 Fibromyalgia
CPT/HCPCS: 99214

== ENCOUNTER → 2025-03-04 08:35 | Outpatient (BNVA) | payer MEDICARE, MEDICAID, SELFPAY | PROVIDERS: PCP Internal Medicine; Visit Provider Physical Medicine & Rehabilitation | DX: G89.4 Chronic pain syndrome (principal); M06.9 Rheumatoid arthritis, unspecified; M79.7 Fibromyalgia; N39.0 Urinary tract infection, site not specified; D68.51 Activated protein C resistance | CPT/HCPCS: 99212 ==